=== PATIENT | female | born 1950 | race Caucasian/White ===

== ENCOUNTER 2017-04-23 22:21 | Emergency (ER) | payer MEDICAID ==
[~2017-04-23] VITALS: Ht 160 cm; Wt 96.2 kg
[2017-04-23 22:30] VITALS: BP 157/75
[2017-04-24] MEDS ORDERED: methylPREDNISolone SOD SUCC 125 MG/2 ML VL IM ONE (00:45)
[2017-04-24] MEDS ORDERED: diphenhdrAMINE HCL 50 MG/1 ML VL IM ONE (00:45)
== END 2017-04-24 01:45 | disposition home or self-care (01) ==
LOC: ER 22:33
DX: L25.9 Unspecified contact dermatitis, unspecified cause (principal); L30.8 Other specified dermatitis; J44.9 Chronic obstructive pulmonary disease, unspecified; K21.9 Gastro-esophageal reflux disease without esophagitis; E78.5 Hyperlipidemia, unspecified; I10 Essential (primary) hypertension; Z88.1 Allergy status to other antibiotic agents
CPT/HCPCS: 96372; 99284; J1200; J2930